=== PATIENT | female | born 1995 | race Caucasian/White ===

== ENCOUNTER 2016-11-27 17:46 | Emergency (ER) | payer SELFPAY ==
--- NOTE | ~2016-11-27 | CR63 ---
[facility] A Service of [facility] RADIOLOGY TEXT RESULTS PATIENT: HANNAH NELSON LOCATION: SED : [birth year] UNIT #: [id number] AGE: [address]: Hai Pace MD SEX: F ORDER DR: [id number] [address] [address] [id number] E MR#: [id number] Acc #: [id number] NAME: HANNAH NELSON : 1995 SEX: F STUDY DATE/TIME: 11/27/2016 17:21 UNIT: SED ROOM: STUDY DESCRIPTION: CR Chest 2 View Attending Physician: Hai Pace M.D. Ordering Physician: Hai Pace M.D. Primary Care Physician: Jojo Xiong M.D. MEDICAL IMAGING REPORT This report is preliminary unless electronic signature is present. EXAM Two-view chest HISTORY Chest pain onset yesterday, right-sided sharp chest pain. FINDINGS PA and lateral examination of the chest upright shows a good expansion of the parenchyma with a normal distribution of the pulmonary vascularity. There is no indication of congestion, effusion, infiltrate, tumor, or nodular density. The pleural reflections and diaphragmatic contours are normal. The cardiac silhouette and mediastinal anatomy is within normal limits. IMPRESSION Normal chest. Dictated by... Nely Fountain M.D. THIS IS AN ELECTRONICALLY VERIFIED REPORT Nely Fountain M.D. at 11/28/2016 6:31 PM VICK/marcelo TD: 11/28/2016 07:32 JOB #: [id number] MEDICAL IMAGING REPORT
[~2016-11-27 17:46] MED LIST: ADDERALL PO; ALBUTEROL17 G1 IH; ANTIBIOTIC FOR UTI PO; BENADRYL PO; CLEOCIN PO; CLONIDINE PO; FAMOTIDINE PO; KEFLEX PO; MEDROL PO; METFORMIN PO; NO MEDICATIONS; ORUDIS75 M1 PO; PREDNISONE PO; PRENATAL1 TA1 PO; ZANFEL30 GM TP; ZITHROMAX PO; [UNRECOGNIZED DRUG - REMARK]
== END 2016-11-27 18:05 | disposition home or self-care (01) ==
LOC: SED 17:46
DX: M94.0 Chondrocostal junction syndrome [Tietze] (principal); J45.909 Unspecified asthma, uncomplicated; F17.210 Nicotine dependence, cigarettes, uncomplicated
CPT/HCPCS: 71020; 99284

== ENCOUNTER 2016-12-15 14:54 | Emergency (ER) | payer OTHER ==
[2016-12-15 14:58] LABS: INFLUENZA A NEG (NEG); INFLUENZA B NEG (NEG)
== END 2016-12-15 15:27 | disposition home or self-care (01) ==
LOC: SED 14:54
PROVIDERS: Nurse Practitioner
DX: J20.9 Acute bronchitis, unspecified (principal); H66.92 Otitis media, unspecified, left ear; J45.909 Unspecified asthma, uncomplicated; F17.210 Nicotine dependence, cigarettes, uncomplicated
CPT/HCPCS: 87651; 87804; 99283

== ENCOUNTER 2017-04-15 23:33 | Emergency (ER) | payer OTHER ==
[~2017-04-15] VITALS: Ht 170.2 cm; Wt 140.6 kg
== END 2017-04-16 00:19 | disposition home or self-care (01) ==
LOC: SED 23:33
DX: S20.161A Insect bite (nonvenomous) of breast, right breast, initial encounter (principal); N61.0 Mastitis without abscess; J45.909 Unspecified asthma, uncomplicated; F17.210 Nicotine dependence, cigarettes, uncomplicated; W57.XXXA Bitten or stung by nonvenomous insect and other nonvenomous arthropods, initial encounter
CPT/HCPCS: 99283